=== PATIENT | male | born 1970 | race Caucasian/White ===

== ENCOUNTER 2019-01-12 11:42 | Inpatient (IN) | payer BC ==
[~2019-01-12] VITALS: Ht 170.2 cm; Wt 87.1 kg
--- OUTSIDE RECORDS SUMMARY | 2019-01-12 11:45 | XMS REPORT | Encounter Summary ---
Author Organization Unknown Address [address] [place] [address] Phone [phone] Reason for Visit Medical Complaint Instructions 1. Acute sinusitis sinusitis: care instructions Augmentin 875 mg-125 mg tablet Bromfed DM 2 mg-30 mg-10 mg/5 mL syrup Discussion Note: None recorded. Plan of Care Patient Instructions consider a trial of flonase and zyrtec if you havent already. may start on antibiotics in 4-5 days if not better. follow up pcp take bromfed as needed. it can cause drowsiness. do not drive will on this medication. follow up pcp Reminders Provider Appointments None recorded. Lab None recorded. Referral None recorded. Procedures None recorded. Surgeries None recorded. Imaging None recorded. Medications Name Start Date Augmentin 875 mg-125 mg tablet Take 1 tablet every 12 hours by oral route after meals for 7 days. Bromfed DM 2 mg-30 mg-10 mg/5 mL syrup Take 10 mL every 4 hours by oral route as needed. Medications Administered None recorded. Vitals Height Weight BMI Blood Pressure 5 ft 7 in 208 lbs 32.6 120/72 Lab Results None recorded. Allergies Code Code System Name Reaction Severity Onset NKDA Problems Name Status Onset Date Source Herpes Zoster Active Encounter Eustachian Tube Disorder Active Encounter Acute Sinusitis Active Encounter Allergic Rhinitis Active Encounter Procedures Date Name Performed by Tonsillectomy Information not available Vaccine List None recorded. Social History Smoking Status Never Smoker Past Encounters 03/13/2017 Acute Sinusitis Nadir Gutiérrez, [facility]-C: [address] [place] [address], Ph. History of Present Illness Sccln-Woiafvvoki-Lgdqymf Reported By: Patient HPI: Location: head/sinuses. Quality: productive cough, colored phlegm, nasal/sinus congestion. Duration: 3days. Severity: moderate. Onset/Timing: gradual. Context: no sick contacts, no foreign travel, non-smoker. Modifying factors: OTC medication. Associated Symptoms: no shortness of breath, no wheezing, no change in number of pillows needed to sleep at night, no sweats, no significant weight gain, no significant weight loss, no morning cough, no sore throat, no vomiting, no diarrhea, no rash, no nausea, no fever, no muscle aches, no headache, green sputum Review of Systems:ROS as noted in the HPI Review of Systems Basic Reported By: Patient Physical Exam Adult Basic, Adult Male Complete Reported By: Patient Constitutional: General Appearance: healthy-appearing, well-nourished, well-developed. Level of Distress: NAD. Ambulation: ambulating normally Psychiatric: Mental Status: active and alert Eyes: Lids and Conjunctivae: non-injected, no discharge Hen-Elju-Eehrl-Throat: Ears: no lesions on external ear, no outer ear tenderness, EACs clear, TMs clear, TM mobility normal. Hearing: no hearing loss. Nose: no lesions on external nose, sinus tenderness, nasal discharge--purulent; congestion. Oropharynx: moist mucous membranes, no erythema, no exudates, tonsils not enlarged Neck: Neck: trachea midline. Lymph Nodes: no cervical LAD Lungs: Respiratory effort: no dyspnea, no tachypnea, no use of accessory muscles, no intercostal retractions. Auscultation: breath sounds normal, good air movement Cardiovascular: Heart Auscultation: RRR, no murmurs
--- OUTSIDE RECORDS SUMMARY | 2019-01-12 11:45 | XMS REPORT | Encounter Summary ---
Author Organization Unknown Address [address] [place] [address] Phone [phone] Care Team Providers Care Film Maker Name Role Phone Star Cabrera MD 3 [phone] Reason for Visit Medical Complaint Instructions 1. Allergic rhinitis allergies: care instructions fluticasone 50 mcg/actuation nasal spray,suspension Medrol (Curly) 4 mg tablets in a dose pack 2. Allergic cough benzonatate 200 mg capsule 3. Acute sinusitis sinusitis: care instructions Augmentin 875 mg-125 mg tablet Discussion Note Pt is in NAD; Verbalizes understanding of all instructions with no questions at this time. Plan of Care Patient Instructions Take fluticasone as needed for congestion. [place] one spray in each nostril twice a day. Take a warm, steamy shower, blow your nose thereafter, and spray in each nostril. Tilt your head up for about 10 seconds and breath through your mouth. Do not sniff or snort the medication in or else the medication will go to your throat and not be absorbed appropriately. Take oral stereid taper with food as directed. Take benzonatate for cough as directed. If no improvement of symptoms in 72 hrs, start Antibiotic as directed and with food to avoid GI distress and start probiotics as well to aid with GI health. Take medications as prescribed and follow up with a PCP, ENT and/or support services specialist. within 2-3 if symptoms worsen as discussed. Reminders Provider Appointments None recorded. Lab None recorded. Referral None recorded. Procedures None recorded. Surgeries None recorded. Imaging None recorded. Medications Name Start Date Augmentin 875 mg-125 mg tablet Take 1 tablet every 12 hours by oral route after meals for 7 days. benzonatate 200 mg capsule Take 1 capsule 3 times a day by oral route as needed. Bromfed DM 2 mg-30 mg-10 mg/5 mL syrup Take 10 mL every 4 hours by oral route as needed. fluticasone 50 mcg/actuation nasal spray,suspension [place] 2 sprays every day by intranasal route with meals for 10 days. Medrol (Curly) 4 mg tablets in a dose pack TAKE PO DIRECTED triamcinolone acetonide 0.1 % topical cream DELMI EXT AA TID Medications Administered None recorded. Vitals Height Weight BMI Blood Pressure 5 ft 7 in 208 lbs 32.6 kg/m2 120/80 mm[Hg] Lab Results None recorded. Allergies Code Code System Name Reaction Severity Status Onset NKDA Problems Name Status Onset Date Source Herpes Zoster Active Encounter Eustachian Tube Disorder Active Encounter Acute Sinusitis Active Encounter Allergic Rhinitis Active Encounter Procedures Date Name Performed by Tonsillectomy Information not available Vaccine List None recorded. Social History Smoking Status Never Smoker Past Encounters 07/11/2017 Allergic Rhinitis; Allergic Cough; Acute Sinusitis Geetha Omer, [employer]NAGER-C: [address] [facility], [place] [address], Ph. History of Present Illness Ofjxk-Hbxdeizzba-Flhblqw Reported By: Patient HPI: Location: head/sinuses, chest. Quality: sore throat, nasal/sinus congestion, dry cough. Duration: 4days. Severity: moderate. Onset/Timing: gradual. Context: no sick contacts, no foreign travel, non-smoker, allergies; symptoms are recurrent, pt does not take prn allergy meds and has never seen an ENT or support services specialist. Modifying factors: ; has not taken anything. Associated Symptoms: no shortness of breath, no wheezing, no change in number of pillows needed to sleep at night, no sweats, no significant weight gain, no significant weight loss, no morning cough, no sore throat, no vomiting, no diarrhea, no rash, no nausea, no fever, no muscle aches, no headache; sinus pressure, mucus nasal drainage, post nasal drainage, dry cough, and chest congestion Review of Systems:ROS as noted in the HPI Review of Systems Basic Reported By: Patient Physical Exam Adult Basic, 14-21 Yr Male, Adult Female Complete, Adult Male Complete Reported By: Patient Constitutional: General Appearance: healthy-appearing, well-nourished, well-developed. Level of Distress: NAD. Ambulation: ambulating normally Psychiatric: Mental Status: active and alert. Orientation: to time, to place, to person Dtj-Mlli-Naotx-Throat: Ears: no lesions on external ear, no outer ear tenderness, EACs clear, TMs clear. Hearing: no hearing loss. Nose: no lesions on external nose, nares patent, no septal deviation, nasal passages clear, nasal discharge--rhinorrhea, post nasal drip; pale and edematous nasal turbinates bilaterally. Lips, Teeth, and Gums: no mouth or lip ulcers, no bleeding gums, normal dentition. Oropharynx: moist mucous membranes, no erythema, no exudates, tonsils absent Neck: Lymph Nodes: no cervical LAD, no supraclavicular LAD Lungs: Respiratory effort: no dyspnea, no tachypnea, no use of accessory muscles, no intercostal retractions. Auscultation: breath sounds normal Cardiovascular: Heart Auscultation: RRR, no murmurs Neurologic: Gait and Station: normal gait, normal station
--- OUTSIDE RECORDS SUMMARY | 2019-01-12 11:45 | XMS REPORT | Continuity of Care Document ---
Author Author [facility] Interface Address Unknown Phone Unavailable Problems Problem Status Onset Date Classification Date Reported Comments Source Coronary arteriosclerosis 03/21/2018 Diagnosis 03/21/2018 [facility] Hypertensive disorder 03/21/2018 Diagnosis 03/21/2018 [facility] Type 2 diabetes mellitus without complication 03/21/2018 Diagnosis 03/21/2018 [facility] Body mass index 30+ - obesity 03/21/2018 Diagnosis 03/21/2018 [facility] Pain in throat 03/21/2018 Diagnosis 03/21/2018 [facility] Influenza-like symptoms 03/21/2018 Diagnosis 03/21/2018 [facility] Acute sinusitis 03/21/2018 Diagnosis 03/21/2018 [facility] Acute Sinusitis 03/20/2018 Problem 03/21/2018 [facility] Type 2 Diabetes Mellitus without Complication 03/20/2018 Problem 03/21/2018 [facility] Hyperlipidemia 03/20/2018 Problem 03/21/2018 [facility] Body Mass Index 30+ - Obesity 03/20/2018 Problem 03/21/2018 [facility] Hypertensive Disorder 03/20/2018 Problem 03/21/2018 [facility] Coronary Arteriosclerosis 03/20/2018 Problem 03/21/2018 [facility] Pain in Throat 03/20/2018 Problem 03/21/2018 [facility] Influenza-like Symptoms 03/20/2018 Problem 03/21/2018 [facility] Acute Myocardial Infarction 03/09/2018 Problem 03/21/2018 [facility] Allergic rhinitis 07/11/2017 Diagnosis 07/11/2017 [facility] Allergic cough 07/11/2017 Diagnosis 07/11/2017 [facility] Eustachian tube disorder 11/14/2016 Diagnosis 11/23/2016 [facility] Herpes zoster 03/04/2016 Diagnosis 03/04/2016 [facility] Herpes Zoster Problem 07/11/2017 [facility] Eustachian Tube Disorder Problem 07/11/2017 [facility] Allergic Rhinitis Problem 07/11/2017 [facility] Medications Medication Details Route Status Patient Instructions Ordering Provider Order Date Source Amoxicillin 875 MG / Clavulanate 125 MG Oral Tablet amoxicillin 875 mg-potassium clavulanate 125 mg tablet TK 1 T PO Q 12 H AFTER MEALS FOR 7 DAYS Active [facility] 24 HR Metformin hydrochloride 1000 MG / sitagliptin 50 MG Extended Release Oral Tablet [Janumet] Janumet XR 50 mg-1,000 mg tablet,extended release Active [facility] Lovastatin 40 MG Oral Tablet lovastatin 40 mg tablet Active [facility] Prednisone 10 MG Oral Tablet prednisone 10 mg tablet Take 1 tablet every day by oral route with meals for 5 days. Active [facility] Prilosec Prilosec Active [facility] Amoxicillin 875 MG / Clavulanate 125 MG Oral Tablet [Augmentin] Augmentin 875 mg-125 mg tablet Take 1 tablet every 12 hours by oral route after meals for 7 days. Active [facility] gabapentin 300 MG Oral Capsule gabapentin 300 mg capsule Take 1 capsule(s) 3 times a day by oral route as directed for 7 days. Active [facility] Metformin hydrochloride 1000 MG / sitagliptin 50 MG Oral Tablet [Janumet] Janumet 50 mg-1,000 mg tablet Take 1 tablet(s) twice a day by oral route. Active [facility] valacyclovir 1000 MG Oral Tablet [Valtrex] Valtrex 1 gram tablet Take 1 tablet(s) every 8 hours by oral route as directed for 7 days. Active [facility] Brompheniramine Maleate 0.4 MG/ML / Dextromethorphan Hydrobromide 2 MG/ML / Pseudoephedrine Hydrochloride 6 MG/ML Oral Solution [Bromfed DM] Bromfed DM 2 mg-30 mg-10 mg/5 mL syrup Take 10 mL every 4 hours by oral route as needed. Active [facility] benzonatate 200 MG Oral Capsule benzonatate 200 mg capsule Take 1 capsule 3 times a day by oral route as needed. Active [facility] Fluticasone propionate 0.05 MG/ACTUAT Metered Dose Nasal [place] fluticasone 50 mcg/actuation nasal spray,suspension [place] 2 sprays every day by intranasal route as needed. Active [facility] Medrol (Curly) 4 mg tablets in a dose pack Medrol (Curly) 4 mg tablets in a dose pack TAKE PO DIRECTED Active [facility] Triamcinolone Acetonide 1 MG/ML Topical Cream triamcinolone acetonide 0.1 % topical cream DELMI EXT AA TID Active [facility] atorvastatin calcium 40 mg tabs atorvastatin calcium 40 mg tabs Active [facility] brilinta 90 mg tabs brilinta 90 mg tabs Active [facility] doxycycline hyclate 100 MG Oral Tablet doxycycline hyclate 100 mg tablet Take 1 tablet twice a day by oral route as directed for 10 days. Active [facility] empagliflozin 25 MG Oral Tablet [Jardiance] Jardiance 25 mg tablet Take 1 tablet every day by oral route. Active [facility] 24 HR Linagliptin 2.5 MG / Metformin hydrochloride 1000 MG Extended Release Oral Tablet [Jentadueto] Jentadueto XR 2.5 mg-1,000 mg tablet, extended release TAKE 2 TS PO QD Active [facility] metoprolol tartrate 50 mg tabs metoprolol tartrate 50 mg tabs Active [facility] Omeprazole 20 MG Delayed Release Oral Capsule [Prilosec] Prilosec 20 mg capsule,delayed release Take 1 capsule every day by oral route. Active [facility] Allergies, Adverse Reactions, Alerts Substance Category Reaction Severity Reaction type Status Date Reported Comments Source Immunizations Immunization Date Given Site Status Last Updated Comments Source Results Order Name Results Value Reference Range Date Interpretation Comments Source RESULT negative 03/20/2018 [facility] SWAB LOCATION Left and Right tonsillar pillars 03/20/2018 [facility] Influenza A negative 03/20/2018 [facility] Influenza B negative 03/20/2018 [facility] Influenza A negative 03/04/2016 [facility] Influenza B negative 03/04/2016 [facility] Vital Signs Vital Sign Value Date Comments Source Diastolic (mm Hg) 65 03/20/2018 [facility] Height 67 03/20/2018 [facility] Systolic (mm Hg) 100 03/20/2018 [facility] Weight 200 03/20/2018 [facility] Diastolic (mm Hg) 80 07/11/2017 [facility] Height 67 07/11/2017 [facility] Systolic (mm Hg) 120 07/11/2017 [facility] Weight 208 07/11/2017 [facility] Diastolic (mm Hg) 72 03/13/2017 [facility] Height 67 03/13/2017 [facility] Systolic (mm Hg) 120 03/13/2017 [facility] Weight 208 03/13/2017 [facility] Diastolic (mm Hg) 76 11/23/2016 [facility] Height 67 11/23/2016 [facility] Systolic (mm Hg) 110 11/23/2016 [facility] Weight 208 11/23/2016 [facility] Diastolic (mm Hg) 80 11/14/2016 [facility] Height 67 11/14/2016 [facility] Systolic (mm Hg) 116 11/14/2016 [facility] Weight 208 11/14/2016 [facility] Diastolic (mm Hg) 90 03/04/2016 [facility] Height 67 03/04/2016 [facility] Systolic (mm Hg) 130 03/04/2016 [facility] Weight 200 03/04/2016 [facility] Encounters Location Location Details Encounter Type Encounter Number Reason For Visit Attending Provider ADM Date DC Date Status Source [place] - [facility] - [id number] Erin Gutiérrez, RESERVATIONS MANAGER: [address] [place] [address], Ph. [id number] Erin Gutiérrez 03/04/2016 [facility] [place] - [facility] - [id number] Erin Gutiérrez, RESERVATIONS MANAGER: [address] [place] [address], Ph. [id number] Erin Gutiérrez 11/14/2016 [facility] [place] - [facility] - [id number] Erin Gutiérrez, RESERVATIONS MANAGER: [address] [place] [address], Ph. [id number] Erin Gutiérrez 11/14/2016 [facility] [place] - [facility] - [id number] JOSHUA RoeP-C: [address] [facility] [place] [address], Ph. [id number] Nadir Gutiérrez 11/23/2016 [facility] [place] - [facility] - [id number] Nadir Gutiérrez, RESERVATIONS MANAGER-C: [address] [facility] [place] [address], Ph. [id number] Nadir Gutiérrez 03/13/2017 [facility] [place] - [facility] - [id number] Geetha Negra, RESERVATIONS MANAGER-C: [address] [facility] [place] [address], Ph. [id number] Geetha Omer 07/11/2017 [facility] [place] - [facility] - [id number] Geetha Omer, RESERVATIONS MANAGER-C: [address] [facility] [place] [address], Ph. [id number] Geetha Omer 03/20/2018 [facility] Procedures Procedure Code Date Perfomer Comments Source Tonsillectomy [facility]
--- OUTSIDE RECORDS SUMMARY | 2019-01-12 11:45 | XMS REPORT | Encounter Summary ---
Author Organization Unknown Address [address] [place] [address] Phone [phone] Care Team Providers Care Back Line Cook Name Role Phone Star Cabrera MD 3 [phone] Reason for Visit Medical Complaint Instructions 1. Acute sinusitis sinusitis: care instructions doxycycline hyclate 100 mg tablet fluticasone 50 mcg/actuation nasal spray,suspension 2. Influenza-like symptoms rapid flu (A+B) benzonatate 200 mg capsule 3. Pain in throat sore throat: care instructions rapid strep group A, throat 4. Type 2 diabetes mellitus without complication type 2 diabetes: care instructions 5. Hyperlipidemia high cholesterol: care instructions 6. Hypertensive disorder elevated blood pressure: care instructions 7. Coronary arteriosclerosis 8. Body mass index 30+ - obesity body mass index: care instructions Discussion Note Pt is in NAD; Verbalizes understanding of all instructions with no questions at this time. Plan of Care Patient Instructions Take tylenol over the counter for sore throat/pain/headache/fever as per pacakge insert. Take benzonatate for cough as directed. Take fluticasone as needed for congestion, like runny nose, sneezing and watery eyes. [place] one spray in each nostril twice a day. Take a warm, steamy shower, blow your nose thereafter, and spray in each nostril. Tilt your head up for about 10 seconds and breath through your mouth. Do not sniff or snort the medication in or else the medication will go to your throat and not be absorbed appropriately. Take antibiotic as directed. Take medications as prescribed and follow up with a PCP within 2-3 if symptoms worsen as discussed. Recommend monitor BP and blood sugars at home and document, bring BP and blood sugars log to PCP for review. Recommend follow a low sodium/fat/carb diet and exercise 30-45 mins/d 3-4 days a week if cleared by die reamer. Reminders Provider Appointments None recorded. Lab Rapid Flu (A+B) 03/20/2018 [facility] Rapid Strep Group a, Throat 03/20/2018 [facility] Referral None recorded. Procedures None recorded. Surgeries None recorded. Imaging None recorded. Medications Name Start Date atorvastatin calcium 40 mg tabs benzonatate 200 mg capsule Take 1 capsule 3 times a day by oral route as needed. brilinta 90 mg tabs doxycycline hyclate 100 mg tablet Take 1 tablet twice a day by oral route as directed for 10 days. fluticasone 50 mcg/actuation nasal spray,suspension [place] 2 sprays every day by intranasal route as needed. Jardiance 25 mg tablet Take 1 tablet every day by oral route. Jentadueto XR 2.5 mg-1,000 mg tablet, extended release TAKE 2 TS PO QD metoprolol tartrate 50 mg tabs Prilosec 20 mg capsule,delayed release Take 1 capsule every day by oral route. Medications Administered None recorded. Vitals Height Weight BMI Blood Pressure 5 ft 7 in 200 lbs 31.3 kg/m2 100/65 mm[Hg] Lab Results Date Name Specimen Result Interpretation Description Value Range Status Address Rapid Strep Group a, Throat Result negative [facility]: [address] [place] [address] Swab Location Left and Right tonsillar pillars [facility]: [address] [place] [address] Rapid Flu (A+B) Influenza a negative [facility]: [address] [place] [address] Influenza B negative [facility]: [address] [place] [address] Allergies Code Code System Name Reaction Severity Status Onset NKDA Problems Name Status Onset Date Source Acute Myocardial Infarction Active 03/09/2018 Type 2 Diabetes Mellitus without Complication Active 03/20/2018 Hyperlipidemia Active 03/20/2018 Body Mass Index 30+ - Obesity Active 03/20/2018 Hypertensive Disorder Active 03/20/2018 Coronary Arteriosclerosis Active 03/20/2018 Acute Sinusitis Active 03/20/2018 Pain in Throat Active 03/20/2018 Influenza-like Symptoms Active 03/20/2018 Procedures Date Name Performed by Tonsillectomy Information not available Vaccine List None recorded. Social History Smoking Status Never Smoker Past Encounters 03/20/2018 Acute Sinusitis; Influenza-like Symptoms; Pain in Throat; Type 2 Diabetes Mellitus without Complication; Hyperlipidemia; Hypertensive Disorder; Coronary Arteriosclerosis; Body Mass Index 30+ - Obesity Geetha Omer, [employer]IC-C: [address] [facility], [place] [address], Ph. History of Present Illness Edpms-Szxzqsccoc-Dgifmts Reported By: Patient HPI: Location: head/sinuses, throat, chest. Quality: sore throat, nasal/sinus congestion, dry cough. Duration: 3days. Severity: moderate. Onset/Timing: gradual; recurrent. Context: no sick contacts, no foreign travel, non-smoker, allergies; Pt has h/o recurrent sinusitis. Modifying factors: ; has not taken anything. Associated Symptoms: no sputum production, no shortness of breath, no wheezing, no change in number of pillows needed to sleep at night, no sweats, no significant weight gain, no significant weight loss, no morning cough, no vomiting, no diarrhea, no rash, no nausea, no fever, no muscle aches, no headache, sore throat; nasal congestion, sinus pressure and pain, purulent nasal drainage, post nasal drip, and dry cough Review of Systems Basic Reported By: Patient Constitutional: Constitutional: no fever Eyes: Eyes: no eye complaints Qtwc-Noxs-Lgilk-Throat: Ears: no ear complaints. Nose: nose/sinus problems. Mouth/Throat: no bleeding gums, no mouth complaints, no teeth problems, sore throat Cardiovascular: Cardiovascular: no chest pain, no shortness of breath, no known heart murmur Respiratory: Respiratory: no wheezing, no shortness of breath, cough Gastrointestinal: Gastrointestinal: no abdominal pain, no vomiting / diarrhea Genitourinary: Genitourinary: no urinary complaints, no discharge Musculoskeletal: Musculoskeletal: no muscle aches, no muscle weakness, no arthralgias/joint pain, no back pain Skin: Skin: no abnormal / changing mole, no jaundice, no rashes Neurologic: Neurologic: no loss of consciousness, no weakness, no numbness, no seizures, no dizziness, no headaches Physical Exam Adult Basic, Adult Male Complete Reported By: Patient Constitutional: General Appearance: obese. Level of Distress: NAD. Ambulation: ambulating normally Psychiatric: Mental Status: active and alert. Orientation: to time, to place, to person Hor-Bemi-Shcen-Throat: Ears: no lesions on external ear, no outer ear tenderness, EACs clear, TMs clear. Hearing: no hearing loss. Nose: no lesions on external nose, nares patent, no septal deviation, nasal passages clear, sinus tenderness, nasal discharge--purulent. Lips, Teeth, and Gums: no mouth or lip ulcers, no bleeding gums, normal dentition. Oropharynx: moist mucous membranes, no erythema, no exudates, tonsils not enlarged Neck: Lymph Nodes: no cervical LAD Lungs: Respiratory effort: no dyspnea, no tachypnea, no use of accessory muscles, no intercostal retractions. Auscultation: breath sounds normal Cardiovascular: Heart Auscultation: RRR, no murmurs Neurologic: Gait and Station: normal gait, normal station
--- OUTSIDE RECORDS SUMMARY | 2019-01-12 11:45 | XMS REPORT | Encounter Summary ---
Author Organization Unknown Address [address] [place] [address] Phone [phone] Reason for Visit Medical Complaint; poison namrata x 7 days, headache, fever x 1 day Instructions 1. Herpes zoster Valtrex 1 gram tablet gabapentin 300 mg capsule shingles: care instructions rapid flu (A+B) Discussion Note: None recorded. Plan of Care Patient Instructions Avoid touching affected area., wash hands often and do not touch area. take medication as prescribed lenght of time. Drink plenty of fluid and rest. If no improvement in one week, or worsen of symptoms, follow up with pcp. If high fever develop greater than 101.4 with stiff neck, vision changes, seek urgent care or ER. Reminders Provider Appointments None recorded. Lab Rapid Flu (A+B) 03/04/2016 [facility] Referral None recorded. Procedures None recorded. Surgeries None recorded. Imaging None recorded. Medications Name Start Date gabapentin 300 mg capsule Take 1 capsule(s) 3 times a day by oral route as directed for 7 days. Janumet 50 mg-1,000 mg tablet Take 1 tablet(s) twice a day by oral route. Janumet XR 50 mg-1,000 mg tablet,extended release lovastatin 40 mg tablet Prilosec Valtrex 1 gram tablet Take 1 tablet(s) every 8 hours by oral route as directed for 7 days. Medications Administered None recorded. Vitals Height Weight BMI Blood Pressure 5 ft 7 in 200 lbs 31.3 130/90 Lab Results Date Name Result Description Value Range Status Rapid Flu (A+B) Influenza a negative Influenza B negative Allergies Name Reaction Severity Onset NKDA Problems Name Status Onset Date Source Herpes Zoster Active Encounter Acute Sinusitis Active Encounter Allergic Rhinitis Active Encounter Procedures None recorded. Vaccine List None recorded. Social History Smoking Status Never Smoker Past Encounters 03/04/2016 Herpes Zoster Erin Gutiérrez, MAINTENANCE DIRECTOR: [address] [place], [place] [address], Ph. History of Present Illness Twae-Oyiihys-Fwzzy-Skin Lesion-Bite 1 Reported By: Patient HPI: Location: chest, back. Quality: painful. Severity: worsening. Duration: has noted for 1-2 weeks. Onset/Timing: gradual onset. Context: no new detergents or skin products, no one else with similar rash, no sting or bite. Aggravating factors: nothing makes it worse. Alleviating factors: nothing gives relief. Associated Symptoms: no fever, no cold symptoms, no nausea, no vomiting, no diarrhea, no urinary symptoms Review of Systems Basic Reported By: Patient Constitutional: Constitutional: fever Eyes: Eyes: no eye complaints Xfpm-Brlw-Ouebz-Throat: Ears: no ear complaints. Nose: no nose/sinus problems. Mouth/Throat: no sore throat, no bleeding gums, no mouth complaints, no teeth problems Cardiovascular: Cardiovascular: no chest pain, no shortness of breath, no known heart murmur Respiratory: Respiratory: no cough, no wheezing, no shortness of breath Gastrointestinal: Gastrointestinal: no abdominal pain, no vomiting / diarrhea Genitourinary: Genitourinary: no urinary complaints, no discharge Musculoskeletal: Musculoskeletal: no muscle aches, no muscle weakness, no arthralgias/joint pain, no back pain Skin: Skin: no abnormal / changing mole, no jaundice, rash Neurologic: Neurologic: no loss of consciousness, no weakness, no numbness, no seizures, no dizziness, no headaches Physical Exam Adult Basic, Adult Male Complete Constitutional: General Appearance: healthy-appearing, well-nourished, well-developed. Level of Distress: NAD. Ambulation: ambulating normally Psychiatric: Mental Status: active and alert. Orientation: to time, to place, to person Eyes: Lids and Conjunctivae: non-injected, no discharge, no pallor. Pupils: PERRLA. Corneas: grossly intact. EOM: EOMI. Lens: clear. Sclerae: non-icteric. Vision: acuity grossly intact, peripheral vision grossly intact Lir-Zmaz-Lkyye-Throat: Ears: no lesions on external ear, no outer ear tenderness, EACs clear, TMs clear. Hearing: no hearing loss. Nose: no lesions on external nose, nares patent, no septal deviation, nasal passages clear, no sinus tenderness, no nasal discharge. Lips, Teeth, and Gums: no mouth or lip ulcers, no bleeding gums, normal dentition. Oropharynx: moist mucous membranes, no erythema, no exudates, tonsils not enlarged Neck: Neck: supple, trachea midline, no masses, FROM. Lymph Nodes: no cervical LAD, no supraclavicular LAD. Thyroid: no enlargement, non-tender, no nodules Lungs: Respiratory effort: no dyspnea, no tachypnea, no use of accessory muscles, no intercostal retractions. Auscultation: breath sounds normal, good air movement Cardiovascular: Heart Auscultation: RRR, no murmurs Skin: Inspection and palpation: ; [place] erythematous rash from right anterior chest radiated to right posterior back
--- OUTSIDE RECORDS SUMMARY | 2019-01-12 11:45 | XMS REPORT | Encounter Summary ---
Author Organization Unknown Address [address] [place] [address] Phone [phone] Reason for Visit Medical Complaint Instructions 1. Acute sinusitis Augmentin 875 mg-125 mg tablet 2. Allergic rhinitis 3. Eustachian tube disorder Discussion Note: None recorded. Patient educational handouts: No information available. Plan of Care Patient Instructions Start on Nasocort and zyrtec daily x 7 days. If symptoms not improve in 3 days, call clinic or see pcp. Reminders Provider Appointments None recorded. Lab None recorded. Referral None recorded. Procedures None recorded. Surgeries None recorded. Imaging None recorded. Medications Name Start Date Augmentin 875 mg-125 mg tablet Take 1 tablet every 12 hours by oral route after meals for 7 days. Janumet XR 50 mg-1,000 mg tablet,extended release lovastatin 40 mg tablet Prilosec Medications Administered None recorded. Vitals Height Weight BMI Blood Pressure 5 ft 7 in 208 lbs 32.6 116/80 Lab Results None recorded. Allergies Name Reaction Severity Onset NKDA Problems Name Status Onset Date Source Herpes Zoster Active Encounter Eustachian Tube Disorder Active Encounter Acute Sinusitis Active Encounter Allergic Rhinitis Active Encounter Procedures None recorded. Vaccine List None recorded. Social History Smoking Status Never Smoker Past Encounters 11/14/2016 Acute Sinusitis; Allergic Rhinitis; Eustachian Tube Disorder Erin Gutiérrez, ATMOSPHERIC SCIENTIST: [address] [place] [address], Ph. History of Present Illness Flyas-Lohjnaprqj-Plkvqjo Reported By: Patient HPI: Location: head/sinuses. Quality: productive cough, colored phlegm, nasal/sinus congestion. Duration: 4days. Severity: moderate. Onset/Timing: gradual. Context: [...] no fever, no muscle aches, no headache, yellow-green, thick sputum, sore throat Review of Systems Basic Reported By: Patient Constitutional: Constitutional: no fever Eyes: Eyes: no eye complaints Tpwo-Rwdg-Sebey-Throat: Ears: no ear complaints. Nose: nose/sinus problems. Mouth/Throat: no sore throat, no [...] Male Complete Constitutional: General Appearance: healthy-appearing, well-nourished, well-developed, overweight. Level of Distress: NAD. Ambulation: ambulating normally Psychiatric: Mental Status: active and alert. Orientation: to time, to place, to person Eyes: Lids and Conjunctivae: non-injected, no discharge, no pallor. Pupils: PERRLA. Corneas: grossly intact. EOM: EOMI. Lens: clear. Sclerae: non-icteric. Vision: acuity grossly intact, peripheral vision grossly intact Fki-Qznf-Haxxq-Throat: Ears: no lesions on external ear, no outer ear tenderness, EACs clear, TMs clear, middle ear fluid. Hearing: no hearing loss. Nose: no lesions on external nose, nares patent, no septal deviation, nasal passages clear, sinus tenderness, nasal discharge--purulent, post nasal drip. Lips, Teeth, and Gums: no mouth or lip ulcers, no bleeding gums, normal dentition. Oropharynx: moist mucous membranes, no erythema, no exudates, tonsils not enlarged Neck: Neck: supple, trachea midline, no masses, FROM. Lymph Nodes: no supraclavicular LAD, anterior cervical LAD. Thyroid: no enlargement, non-tender, no nodules Lungs: Respiratory effort: no dyspnea, no tachypnea, no use of accessory muscles, no intercostal retractions. Auscultation: breath sounds normal, good air movement Cardiovascular: Heart Auscultation: RRR, no murmurs
--- OUTSIDE RECORDS SUMMARY | 2019-01-12 11:46 | XMS REPORT | Encounter Summary ---
Author Organization Unknown Address [address] [place] [address] Phone [phone] Reason for Visit Medical Complaint; congestion, drainage x 7 days Instructions 1. Allergic rhinitis prednisone 10 mg tablet Discussion Note: None recorded. Patient educational handouts: No information available. Plan of Care Patient Instructions Continue nasocort and zyrtec. If still not improved, follow up with [facility]. However, if noted fever onset,call clinic. Reminders Provider Appointments None recorded. Lab None recorded. Referral None recorded. Procedures None recorded. Surgeries None recorded. Imaging None recorded. Medications Name Start Date amoxicillin 875 mg-potassium clavulanate 125 mg tablet TK 1 T PO Q 12 H AFTER MEALS FOR 7 DAYS Janumet XR 50 mg-1,000 mg tablet,extended release lovastatin 40 mg tablet prednisone 10 mg tablet Take 1 tablet every day by oral route with meals for 5 days. Prilosec Medications Administered None recorded. Vitals Height Weight BMI Blood Pressure 5 ft 7 in 208 lbs 32.6 110/76 Lab Results None recorded. Allergies Name Reaction Severity Onset NKDA Problems Name Status Onset Date Source Herpes Zoster Active Encounter Eustachian Tube Disorder Active Encounter Acute Sinusitis Active Encounter Allergic Rhinitis Active Encounter Procedures None recorded. Vaccine List None recorded. Social History Smoking Status Never Smoker Past Encounters 11/23/2016 Allergic Rhinitis MARY Roe-C: [address] [place] [address], Ph. 11/14/2016 Acute Sinusitis; Allergic Rhinitis; Eustachian Tube Disorder MARY Knapp: [address] [place] [address], Ph. History of Present Illness Xybqp-Oonmgpqxqy-Fzratjo Reported By: Patient HPI: Quality: nasal/sinus congestion; drainage. Duration: 7days. Severity: moderate. Onset/Timing: gradual. Context: no sick contacts, no foreign travel, non- smoker, allergies. Modifying factors: OTC medication. Associated Symptoms: no sputum production, no shortness of breath, no wheezing, no change in number of pillows needed to sleep at night, no sweats, no significant weight gain, no significant weight loss, no morning cough, no sore throat, no vomiting, no diarrhea, no rash, no nausea, no fever, no muscle aches, no headache Review of Systems Basic Reported By: Patient Constitutional: Constitutional: no fever Eyes: Eyes: no eye complaints Rgcc-Vizj-Jxizo-Throat: Ears: ear pain. Nose: nose/sinus problems. Mouth/Throat: no sore throat, [...] acuity grossly intact, peripheral vision grossly intact Flr-Otmw-Utllf-Throat: Ears: no lesions on external ear, no outer ear tenderness, EACs clear, TMs clear, middle ear fluid. Hearing: no hearing loss. Nose: no lesions on external nose, nares patent, no septal deviation, nasal passages clear, no sinus tenderness, post nasal drip; rhinitis. Lips, Teeth, and Gums: no mouth or [...]
[2019-01-12] MEDS ORDERED: SODIUM CHLORIDE 0.9% 1000ML 2,000 ML ONE (11:55)
[2019-01-12] MEDS ORDERED: SODIUM CHLORIDE 0.9% 1000ML 1,000 ML IV STA ×2 (11:55)
[2019-01-12] MEDS ORDERED: FAMOTIDINE 20 MG/2 ML VIAL IV STA (12:11)
--- NOTE | 2019-01-12 12:14 | NUR ---
RECEIVED PT VIA W/C FROM TRIAGE. PLACED PT ON STRETCHER IN ER #2. MD AND MULTIPLE STAFF AT BEDSIDE. ATTEMPTED EKG BUT UNABLE TO GET GOOD QUALITY SECONDARY TO PTS SHIVERING. MULTIPLE WARM BLANKETS AND LETY HUGGER PLACED ON PT. PT ON MONITOR. SINUS TACH. SPO2 100% ON ROOM AIR. 3RD BOLUS HUNG AND MEDS GIVEN. PT IS AA&OX3. BLOOD PRESSURE IMPROVED. CURRENTLY 136/79. HR 130.
[2019-01-12] MEDS ORDERED: INSULIN REGULAR, HUMAN 100 UNIT/1 ML 3ML VIAL SQ ONE (12:15)
[2019-01-12] MEDS ORDERED: METOCLOPRAMIDE HCL 10 MG/2ML VIAL IV ONE ×2 (12:15→14:15)
[2019-01-12] MEDS ORDERED: SODIUM CHLORIDE 0.9% 1000ML 1,000 ML IV ONE (12:15)
[2019-01-12] MEDS ORDERED: SODIUM BICARBONATE 8.4% SYRING 100 ML ONE (12:20)
[2019-01-12] MEDS ORDERED: SODIUM BICARBONATE 8.4% 50 ML VIAL IV STA ×2 (12:20→12:25)
[2019-01-12 12:29] LABS: ABG HCO3 5 mmol/L (23-28); ABG PCO2 19 mmHg (41-51); ABG PH 7.06 (7.31-7.41); ABG PO2 135 mmHg (80-105)
[2019-01-12 12:32] LABS: BASOPHILS % 0.1 % (0.0-1.0); EOSINOPHILS # (AUTO) 0.1 (0.0-0.4); EOSINOPHILS % 0.6 % (0.0-6.0); HEMATOCRIT 58.5 % (38.2-49.6); HEMOGLOBIN 20.6 g/dL (14.0-18.0); LYMPHOCYTES % 10.5 % (18.0-39.1); MEAN CORPUSCULAR HGB CONC 35.2 g/dL (31-35); MEAN CORPUSCULAR VOLUME 93.6 fL (81-99); MONOCYTES # (AUTO) 1.2 (0.2-0.8); MONOCYTES % 6.5 % (4.4-11.3); NEUTROPHILS # (AUTO) 15.4 (2.1-6.9); NEUTROPHILS % 81.9 % (38.7-80.0); PLATELET COUNT 432 x10e3/uL (140-360); RED BLOOD COUNT 6.25 x10e6/uL (4.3-5.7); RED CELL DISTRIBUTION WIDTH 13.4 % (11.7-14.4)
[2019-01-12] MEDS ORDERED: SODIUM CHLORIDE 0.9% 1000ML 2,000 ML IV ONE ×2 (13:00→17:45)
[2019-01-12 13:12] LABS: CREATINE KINASE MB 1.1 ng/mL (0-5.0)
[2019-01-12 13:21] LABS: MAGNESIUM 3.2 MG/DL (1.3-2.1); PHOSPHORUS 5.3 MG/DL (2.3-4.7)
[2019-01-12] MEDS ORDERED: BRILINTA90 MG PO (13:25)
[2019-01-12] MEDS ORDERED: JARDIANCE PO (13:25)
[2019-01-12] MEDS ORDERED: PRILOSEC OTC20 MG PO (13:25)
[2019-01-12] MEDS ORDERED: METOPROLOL TART50 MG PO (13:25)
[2019-01-12] MEDS ORDERED: ATORVASTATIN CA80 MG PO (13:25)
[2019-01-12] MEDS ORDERED: METFORMIN HCL500 M2 PO (13:25)
[2019-01-12] MEDS ORDERED: ASPIR 8181 MG PO (13:25)
--- NOTE | 2019-01-12 13:26 | NUR ---
PATIENT'S BLOOD PRESSURE DROPPED AGAIN. NOW 96/64. HR REMAINS 130. FAMILY AT BEDSIDE NOW. UPDATED THEM ON PLAN OF CARE. PT SAYS HE IS STARTING TO WARM UP BUT HE IS STILL SHIVERING A LITTLE. 2 MORE LITERS OF IV NS ORDERED AND INFUSING NOW.
[2019-01-12 13:28] LABS: INR 1.04; PROTHROMBIN TIME 14.1 seconds (11.9-14.5)
[2019-01-12 13:29] LABS: PARTIAL THROMBOPLASTIN TIME 26.8 seconds (23.8-35.5)
[2019-01-12 13:34] LABS: CHOLESTEROL 484 MD/DL (0-199); HDL CHOLESTEROL 11 MG/DL (40-60)
[2019-01-12 13:35] LABS: TRIGLYCERIDES 4073 MG/DL (0-149)
[2019-01-12 13:39] LABS: ALBUMIN 2.7 g/dL (3.5-5.0); ALBUMIN/GLOBULIN RATIO 0.5 (0.8-2.0); CREATININE, SERUM 2.03 mg/dL (0.72-1.25); POTASSIUM 4.7 mmol/L (3.5-5.1)
[2019-01-12 13:55] LABS: CALCIUM IONIZED 0.6 mmol/L (1.09-1.30)
--- NOTE | 2019-01-12 14:00 | NUR ---
PT WAS HOT AND REMOVED ALL OF HIS BLANKETS AND LETY HUGGER. PTS TEMP NOW 98.3. PT STATES THAT HE IS UNCOMFORTABLE. IS AT BEDSIDE. URINE PROVIDED
[2019-01-12] MEDS ORDERED: DICYCLOMINE HCL 20 MG/2 ML VIAL IM ONE (14:15)
[2019-01-12 14:18] LABS: ANION GAP 24.7 mmol/L (8-16)
[2019-01-12 14:27] LABS: CALCIUM 6.1 mg/dL (8.4-10.2)
[2019-01-12 14:30] LABS: CLARITY,URINE SL CLOUDY (CLEAR); COLOR,URINE YELLOW (YELLOW); LEUKOCYTE ESTERASE ,URINE NEGATIVE (NEGATIVE); NITRITE,URINE NEGATIVE (NEGATIVE); PROTEIN,URINE DIPSTICK 1+ (NEGATIVE)
[2019-01-12 14:31] LABS: BILIRUBIN,URINE 1+ (NEGATIVE); KETONES,URINE 1+ (NEGATIVE); URINE UROBILINOGEN 0.2 mg/dL (0.2 - 1)
[2019-01-12] MEDS ORDERED: SODIUM CHLORIDE 0.9% 1000ML 1,000 ML IV SCH ×2 (14:32→20:11)
[2019-01-12 14:40] LABS: BACTERIA,URINE FEW /HPF; RBC,URINE 0-5 /HPF (0-5)
[2019-01-12] MEDS ORDERED: SODIUM CHLORIDE FLUSH 10 ML SYR INJ PRN (14:45)
[2019-01-12] MEDS ORDERED: DEXTROSE 50% SYRINGE 50 ML IV PRN (14:45)
[2019-01-12] MEDS: ONDANSETRON HCL INJ 2MG/ML 2ML 2 MG/ML VIAL IV PRN ×2 (14:50→19:45)
[2019-01-12] MEDS ORDERED: CALCIUM GLUCONATE 10% INJ 9.3 MEQ in SODIUM CHLORIDE 0.9% 100 ML 100 ML IV ONE ×2 (15:00→17:45)
[2019-01-12 15:14] LABS: BASOPHILS # (AUTO) 0.1 (0.0-0.1); BASOPHILS % 0.5 % (0.0-1.0); EOSINOPHILS # (AUTO) 0.1 (0.0-0.4); EOSINOPHILS % 0.7 % (0.0-6.0); HEMATOCRIT 47.9 % (38.2-49.6); HEMOGLOBIN 17.4 g/dL (14.0-18.0); LYMPHOCYTES # (AUTO) 1.6 (1.0-3.2); LYMPHOCYTES % 12.6 % (18.0-39.1); MEAN CORPUSCULAR HEMOGLOBIN 32.8 pg (28-32); MEAN CORPUSCULAR HGB CONC 36.3 g/dL (31-35); MEAN CORPUSCULAR VOLUME 90.2 fL (81-99); MONOCYTES # (AUTO) 0.6 (0.2-0.8); NEUTROPHILS # (AUTO) 10.4 (2.1-6.9); NEUTROPHILS % 80.8 % (38.7-80.0); PLATELET COUNT 278 x10e3/uL (140-360); RED BLOOD COUNT 5.31 x10e6/uL (4.3-5.7); RED CELL DISTRIBUTION WIDTH 13.5 % (11.7-14.4)
[2019-01-12 15:16] LABS: BAND NEUTROPHILS % (MANUAL) 42 %; BLAST CELLS % MANUAL 1; EOSINOPHILS % (MANUAL) 1 % (0-7); LYMPHOCYTES % (MANUAL) 15 % (19-48); MONOCYTES % (MANUAL) 14 % (3.4-9.0); NEUTROPHILS % (MANUAL) 27 % (40-74)
--- NOTE | 2019-01-12 15:26 | Diagnostic Imaging Report ---
EXAMINATION: CHEST SINGLE (PORTABLE) INDICATION: Vomiting, shaking, hypertension. COMPARISON: None FINDINGS: TUBES and LINES: None. LUNGS: Lungs are poorly inflated. There is central vascular congestion. There is no evidence of pneumonia or pulmonary edema. There is focal opacity in the right lower lung medially. PLEURA: No pleural effusion or pneumothorax. HEART AND MEDIASTINUM: The cardiomediastinal silhouette is unremarkable. BONES AND SOFT TISSUES: No acute osseous abnormality. UPPER ABDOMEN: No free air under the diaphragm. IMPRESSION: No acute radiographic abnormality. Low lung volumes with focal opacity in the medial right lower lung. This could represent pulmonary vessel or atelectasis, however underlying pulmonary nodule is not excluded. Recommend follow-up chest radiograph with improved lung inflation for further evaluation. Signed by: Dr. Chrystal Lopez MD on 01/12/2019 3:23 PM
[2019-01-12 15:28] LABS: ALBUMIN 2.5 g/dL (3.5-5.0); ALBUMIN/GLOBULIN RATIO 0.5 (0.8-2.0); ALKALINE PHOSPHATASE 74 IU/L (40-150); BLOOD UREA NITROGEN 30 mg/dL (7-26); BUN/CREATININE RATIO 18 (6-25); CHLORIDE 101 mmol/L (98-107); CREATININE, SERUM 1.65 mg/dL (0.72-1.25); EST GLOMERULAR FILTRATION RATE 44 ML/MIN (60-); GLUCOSE 324 mg/dL (74-118); POTASSIUM 4.2 mmol/L (3.5-5.1); SODIUM 132 mmol/L (136-145)
[2019-01-12 15:34] LABS: CALCIUM 5.5 mg/dL (8.4-10.2)
[2019-01-12 15:43] LABS: ABG HCO3 9 mmol/L (23-28); ABG PCO2 18 mmHg (41-51); ABG PH 7.31 (7.31-7.41); ABG PO2 95 mmHg (80-105)
[2019-01-12] MEDS ORDERED: SODIUM CHLORIDE 0.9% 1000ML 2,000 ML IV SCH (16:00)
--- NOTE | 2019-01-12 16:53 | Diagnostic Imaging Report ---
EXAM: CT Abdomen and Pelvis WITH contrast INDICATION: Abdominal Pain COMPARISON: None. TECHNIQUE: Abdomen and pelvis were scanned utilizing a multidetector helical scanner from the lung base to the pubic symphysis after administration of IV contrast. Coronal and sagittal reformations were obtained. Routine protocol was performed. Scan was performed when during portal venous phase. IV CONTRAST: 150 mL of Isovue 370 RADIATION DOSE: Total DLP: 665.7 mGy*cm Estimated effective dose: (DLP x 0.015 x size factor) mSv Dose modulation, iterative reconstruction, and/or weight based adjustment of the mA/kV was utilized to reduce the radiation dose to as low as reasonably achievable. FINDINGS: LINES and TUBES: None. LOWER THORAX: The distal esophagus is mildly dilated and filled with fluid. Coronary atherosclerosis. Patchy dependent atelectasis. HEPATOBILIARY: Diffuse mild fatty liver. No evidence of focal lesion. No biliary ductal dilation. GALLBLADDER: No radio-opaque stones or sludge. No wall thickening. SPLEEN: No splenomegaly. PANCREAS: The pancreas is edematous with substantial surrounding inflammatory changes and small amount of free fluid. A portion of the pancreatic body is hypoenhancing (series 2, image 35). No evidence of drainable fluid collection. ADRENALS: No adrenal nodules KIDNEYS/URETERS: Kidneys enhance symmetrically. No evidence of hydronephrosis, solid mass, or stone. GI TRACT: There is severe wall thickening and inflammatory changes involving the duodenum. There is dilation of duodenal and jejunal loops with relative decompression of the ileum and colon. There is a gentle transition point in the left lower quadrant, for example on series 2, image 67 without evidence of obstructing lesion. The appendix is not visualized. PELVIC ORGANS/BLADDER: The bladder is distended. LYMPH NODES: No lymphadenopathy. VESSELS: There are scattered atherosclerotic calcifications in the aorta and branch vessels. PERITONEUM / RETROPERITONEUM: No free air. There is a small mild of free fluid. There is stranding within the retroperitoneum bilaterally. BONES AND SOFT TISSUES: Unremarkable. CONCLUSION: Pancreatitis with hypoenhancement, concerning for necrotizing pancreatitis. Substantial surrounding inflammatory changes and small amount of free fluid. No evidence of drainable collection. Substantial wall thickening within the duodenum and proximal jejunum likely is likely reactive. Dilation of duodenal and jejunal loops with relative decompression of the ileum and colon could represent focal ileus from adjacent pancreatitis or alternatively partial small bowel obstruction. Dilated distal esophagus with fluid. Suggest NG tube placement. The above findings were discussed with Dr. Alcantara on 01/12/2019 at 448 PM, who responded indicating that the communication was understood. Diffuse mild fatty liver. Distended bladder. Signed by: Dr. Chrystal Lopez MD on 01/12/2019 4:50 PM
[2019-01-12 17:24] LABS: ANION GAP 17.2 mmol/L (8-16)
[2019-01-12 17:26] LABS: CARBON DIOXIDE 18 mmol/L (22-32)
[2019-01-12] MEDS ORDERED: CALCIUM GLUCONATE 10% INJ 0.465 MEQ/ML VIAL ONE (17:29)
[2019-01-12] MEDS ORDERED: SODIUM CHLORIDE 0.9% 100 ML ONE ×3 (17:30→20:53)
[2019-01-12] MEDS ORDERED: PANTOPRAZOLE 40 MG 10ML VIAL IV ONE (17:30)
[2019-01-12] MEDS ORDERED: MORPHINE SULFATE INJ 4 MG/ML INJ 1ML IV PRN (17:30)
--- NOTE | 2019-01-12 18:04 | NUR ---
DR. OTOOLE AT BEDSIDE
[2019-01-12] MEDS ORDERED: ERTAPENEM 1GM/NS 100ML 100 ML IV ONE (18:45)
[2019-01-12] MEDS ORDERED: BENZOCAINE/TETRACAINE/BUTAMBEN AERO SPRAY 56 GM CAN ONE (18:51)
[2019-01-12] MEDS ORDERED: BENZOCAINE/TETRACAINE/BUTAMBEN AERO SPRAY 56 GM CAN TOP ONE (19:15)
--- NOTE | 2019-01-12 19:15 | NUR ---
in tx room with dr lee to explain NGT insertion.
[2019-01-12] MEDS ORDERED: ERTAPENEM 1 GM VIAL ONE (19:42)
[2019-01-12] MEDS ORDERED: VANCOMYCIN 1GM/NS 250 ML 250 ML ONE (19:43)
[2019-01-12] MEDS ORDERED: ACETAMINOPHEN 1000 MG/100 ML IV ONE (19:45)
[2019-01-12] MEDS ORDERED: ACETAMINOPHEN 1000 MG/100 ML 100 ML IV ONE (19:46)
[2019-01-12 19:47] LABS: CHOLESTEROL 22 MD/DL (0-199); TRIGLYCERIDES 182 MG/DL (0-149)
[2019-01-12 19:48] LABS: HDL CHOLESTEROL < 8 MG/DL (40-60); LDL CHOLESTEROL -22 MG/DL (60-130)
--- NOTE | 2019-01-12 20:05 | NUR ---
CALLED [facility], [facility] STATES NO RECORD OF TRANSFER INITIATED; TRANSFER INITIATED AT THIS TIME TO PENDING SALE TO [facility]
--- NOTE | 2019-01-12 20:08 | NUR ---
ER SPEAKING TO PHYSICIAN AT [facility]
[2019-01-12] MEDS ORDERED: DEXTROSE 5%/0.45% SOD CHL 1,000 ML IV SCH (20:11)
[2019-01-12] MEDS ORDERED: MAGNESIUM SULF 1GRAM/DEXTROSE 100 ML IV PRN (20:15)
[2019-01-12] MEDS ORDERED: INSULIN REGULAR, HUMAN 3ML VL 100 UNIT in SODIUM CHLORIDE 0.9% 100 ML IV SCH ×2 (20:15)
[2019-01-12] MEDS ORDERED: POTASSIUM CHLORIDE 20MEQ/100ML 200 ML IV PRN (20:15)
[2019-01-12] MEDS ORDERED: SODIUM CHLORIDE 0.9% 50ML 50 ML ONE (20:35)
[2019-01-12] MEDS ORDERED: IOPAMIDOL 370 MG/ML 200 ML INFUS..BTL INJ ONE (20:35)
[2019-01-12] MEDS ORDERED: ETOMIDATE 2 MG/ML 10 ML INJ IV ONE (20:41)
[2019-01-12] MEDS ORDERED: ROCURONIUM BROMIDE 2 ML ONE (20:41)
[2019-01-12] MEDS ORDERED: MIDAZOLAM HCL 2 MG/2 ML VIAL ONE (20:44)
[2019-01-12] MEDS ORDERED: MIDAZOLAM HCL 25 MG in SODIUM CHLORIDE 0.9% 45 ML IV ONE (20:45)
[2019-01-12] MEDS ORDERED: LACTATED RINGER'S 1,000 ML ONE (20:50)
[2019-01-12] MEDS ORDERED: INSULIN REGULAR, HUMAN 100 UNIT/1 ML 3ML VIAL ONE (20:53)
[2019-01-12] MEDS ORDERED: DEXTROSE 5%/0.45% SOD CHL 1,000 ML IV ONE ×2 (21:00→21:30)
[2019-01-12] MEDS ORDERED: FENTANYL CITRATE INJ 2000 MCG in SODIUM CHLORIDE 0.9% 210 ML IV PRN (21:00)
[2019-01-12] MEDS ORDERED: MIDAZOLAM HCL 25 MG in SODIUM CHLORIDE 0.9% 45 ML IV PRN (21:00)
[2019-01-12] MEDS ORDERED: METOPROLOL TARTRATE INJ 1 MG/ML VIAL ONE (21:18)
--- NOTE | 2019-01-12 21:18 | NUR ---
INSULIN DRIP 2 UNITS PER HOUR D5 1/2 NS @ 150CC PER HOUR
--- NOTE | 2019-01-12 21:18 | NUR ---
LOPRESSOR 5MG SIVP HR 174, BP 160/81
--- NOTE | 2019-01-12 21:25 | NUR ---
versed drip started at 4mg/hr on pump
--- NOTE | 2019-01-12 21:29 | Diagnostic Imaging Report ---
Examination: Single AP view of the chest. COMPARISON: 01/12/2019 INDICATION: Central line DISCUSSION: Lines/tubes: Right IJ catheter with tip overlying the SVC. Endotracheal tube with the tip above the kelle. Enteric tube with the tip overlying the left upper quadrant. Lungs: Low lung volumes with atelectasis. Pleura: No pleural effusion or pneumothorax. Heart and mediastinum: The heart and the mediastinum are unremarkable. Bones and soft tissues: No acute bony abnormalities. IMPRESSION: Low lung volumes with atelectasis. Satisfactory line and tubes Signed by: Dr. Wu Marx M.D. on 01/12/2019 9:26 PM
[2019-01-12 21:39] LABS: ALANINE AMINOTRANSFERASE 10 IU/L (0-55); ALBUMIN/GLOBULIN RATIO 0.5 (0.8-2.0); ALKALINE PHOSPHATASE 84 IU/L (40-150); BLOOD UREA NITROGEN 26 mg/dL (7-26); BUN/CREATININE RATIO 21 (6-25); CHLORIDE 106 mmol/L (98-107); CREATININE, SERUM 1.26 mg/dL (0.72-1.25); EST GLOMERULAR FILTRATION RATE > 60 ML/MIN (60-); GLUCOSE 231 mg/dL (74-118); MAGNESIUM 2.5 MG/DL (1.3-2.1); PHOSPHORUS 2.6 MG/DL (2.3-4.7); POTASSIUM 4.1 mmol/L (3.5-5.1); SODIUM 132 mmol/L (136-145)
--- NOTE | 2019-01-12 21:40 | NUR ---
fentanyl drip started at 25mcg/hr versed drip started at 4mg/hr
[2019-01-12 21:41] LABS: BASOPHILS % 0.4 % (0.0-1.0); EOSINOPHILS # (AUTO) 0.1 (0.0-0.4); EOSINOPHILS % 0.9 % (0.0-6.0); HEMATOCRIT 45.7 % (38.2-49.6); HEMOGLOBIN 16.1 g/dL (14.0-18.0); LYMPHOCYTES # (AUTO) 1.1 (1.0-3.2); LYMPHOCYTES % 9.8 % (18.0-39.1); MEAN CORPUSCULAR HEMOGLOBIN 32.1 pg (28-32); MEAN CORPUSCULAR HGB CONC 35.2 g/dL (31-35); MEAN CORPUSCULAR VOLUME 91.2 fL (81-99); MONOCYTES # (AUTO) 0.9 (0.2-0.8); NEUTROPHILS # (AUTO) 8.8 (2.1-6.9); NEUTROPHILS % 80.6 % (38.7-80.0); PLATELET COUNT 296 x10e3/uL (140-360); RED BLOOD COUNT 5.01 x10e6/uL (4.3-5.7); RED CELL DISTRIBUTION WIDTH 13.8 % (11.7-14.4)
[2019-01-12] MEDS ORDERED: NOREPINEPHRINE 8 MG/D5W 250 ML 250 ML ONE (21:42)
--- NOTE | 2019-01-12 21:49 | NUR ---
BP DROPPED TO 81/45, MD AWARE, NS 500CC BOLUS STARTED TURNED OF VERSED, FENTANYL DRIPS, CALCIUM INFUSED. PT COOL AND CLAMMY, WARM BLANKETS TO PATIENT
[2019-01-12 21:57] LABS: ANION GAP 14.1 mmol/L (8-16); CARBON DIOXIDE 16 mmol/L (22-29)
[2019-01-12 22:00] LABS: CALCIUM 5.9 mg/dL (8.4-10.2)
[2019-01-12 22:23] LABS: CREATINE KINASE 201 IU/L (30-200)
--- NOTE | 2019-01-12 22:30 | NUR ---
PT MOVING ABOUT ON BED, STARTED VERSED DRIP BACK TO 4MG/HR. AWARE.
== END 2019-01-12 22:50 | disposition short-term general hospital (02) | DRG 871 ==
LOC: ER 11:42 → ERHOLD 14:53
DX: A41.9 Sepsis, unspecified organism (principal); K85.91 Acute pancreatitis with uninfected necrosis, unspecified; J96.01 Acute respiratory failure with hypoxia; R65.21 Severe sepsis with septic shock; J96.00 Acute respiratory failure, unspecified whether with hypoxia or hypercapnia; R65.20 Severe sepsis without septic shock
CPT/HCPCS: 31500; 36415; 36555; 36600; 51700; 71045; 74177; 80053; 80061; 81001; 82150; 82330; 82550; 82553; 82805; 82948; 83605; 83690; 83735; 83880; 84100; 84484; 85025; 85610; 85730; 86850; 86900; 87040; 87086; 93005; 94002; 99284; J0500; J0610; J1335; J2250; J2270; J2405; J2765; J3370; J7030; J7050; J7121; Q9967